=== PATIENT | female | born 1985 | race Caucasian/White ===

== ENCOUNTER 2016-07-22 18:17 | Inpatient (IN) | payer BC ==
[~2016-07-22] VITALS: Ht 152.4 cm; Wt 111.4 kg
[2016-07-22] VITALS (8 sets, daily range): BP systolic 114–126; BP diastolic 59–84
[~2016-07-22 18:17] MED LIST: ZOFRAN ODT4 MG PO
[2016-07-22] MEDS ORDERED: ZYRTEC10 M2 PO (19:08)
[2016-07-22] MEDS ORDERED: PROZAC20 MG PO (19:08)
[2016-07-22] MEDS ORDERED: PRENATAL TABLE1 EAC3 PO (19:08)
[2016-07-22 19:47] LABS: BASOPHIL COUNT 0.1 K/uL (0-0.1); EOSINOPHIL (%) 0.6 % (0-5); EOSINOPHIL COUNT 0.1 K/uL (0-0.3); HEMATOCRIT 33.9 % (36.0-46.0); IMMATURE GRANULOCYTE (%) 1.1 % (0.0-0.7); IMMATURE GRANULOCYTE COUNT 0.1 K/uL; LYMPHOCYTE COUNT 2.4 K/uL (1.0-2.8); MCH 27.6 PG (29.0-34.0); MCHC 32.2 G/DL (30.0-36.0); MCV 85.8 FL (83-99); MEAN PLAT.VOLUME 9.9 uM^3 (9.5-12.4); MONOCYTE (%) 7.9 % (3-12); MONOCYTE COUNT 0.9 K/uL (0-0.8); NEUTROPHIL (%) 69.5 % (45-76); PLATELET COUNT 330 K/uL (156-360); RBC DIS.WIDTH-SD 47.4 % (39-53); RED BLOOD COUNT 3.95 M/uL (3.80-5.20); WHITE BLOOD COUNT 11.5 K/uL (4.1-10.2)
[2016-07-23] VITALS (32 sets, daily range): BP systolic 96–132; BP diastolic 51–80
[2016-07-23] MEDS ORDERED: ENDOCET 5-3251 EACH PO (23:18)
[2016-07-23] MEDS ORDERED: IBUPROFEN800 MG PO (23:18)
[2016-07-24] VITALS (10 sets, daily range): BP systolic 91–129; BP diastolic 50–75
[2016-07-24 06:59] LABS: BASOPHIL COUNT 0.1 K/uL (0-0.1); EOSINOPHIL (%) 0.1 % (0-5); HEMATOCRIT 28.9 % (36.0-46.0); IMMATURE GRANULOCYTE (%) 0.9 % (0.0-0.7); IMMATURE GRANULOCYTE COUNT 0.1 K/uL; INSTRUMENT ABS NEUTROPHIL CT 10.9 K/uL; LYMPHOCYTE COUNT 1.8 K/uL (1.0-2.8); MCH 27.3 PG (29.0-34.0); MCHC 31.5 G/DL (30.0-36.0); MCV 86.8 FL (83-99); MEAN PLAT.VOLUME 10.1 uM^3 (9.5-12.4); MONOCYTE (%) 6.4 % (3-12); MONOCYTE COUNT 0.9 K/uL (0-0.8); NEUTROPHIL (%) 78.9 % (45-76); NEUTROPHIL COUNT 10.9 K/uL (1.8-6.4); PLATELET COUNT 266 K/uL (156-360); RBC DIS.WIDTH-CV 15.2 % (11.8-14.6); RED BLOOD COUNT 3.33 M/uL (3.80-5.20); WHITE BLOOD COUNT 13.8 K/uL (4.1-10.2)
[2016-07-25 03:13] VITALS: BP 99/58
[2016-07-25 07:17] VITALS: BP 119/75
[2016-07-25 11:22] VITALS: BP 126/73
[2016-07-25 15:56] VITALS: BP 122/84
[2016-07-25 19:39] VITALS: BP 129/75
[2016-07-25 23:10] VITALS: BP 126/68
[2016-07-26 07:48] VITALS: BP 126/78
== END 2016-07-26 10:51 | disposition home or self-care (01) | DRG 765 ==
LOC: LDRP-OP 18:17 → 2WEST 18:18 → LDRP-OP 08-12 10:57
PROVIDERS: Obstetrics & Gynecology
PROC: 3E0P7GC Introduction of Other Therapeutic Substance into Female Reproductive, Via Natural or Artificial Opening (ICD-10-PCS; 2016-07-22)
PROC: 3E0S3BZ Introduction of Anesthetic Agent into Epidural Space, Percutaneous Approach (ICD-10-PCS; 2016-07-22)
PROC: 10D00Z1 Extraction of Products of Conception, Low, Open Approach (ICD-10-PCS; principal; 2016-07-23)
DX: O48.0 Post-term pregnancy (principal); Z68.42 Body mass index [BMI] 45.0-49.9, adult; F33.9 Major depressive disorder, recurrent, unspecified; O36.5931 Maternal care for other known or suspected poor fetal growth, third trimester, fetus 1; O00-O9A Pregnancy, childbirth and the puerperium; O99.214 Obesity complicating childbirth; E66.01 Morbid (severe) obesity due to excess calories; Z37.0 Single live birth; Z3A.41 41 weeks gestation of pregnancy; O69.1XX1 Labor and delivery complicated by cord around neck, with compression, fetus 1; O77.0 Labor and delivery complicated by meconium in amniotic fluid; O32.4XX1 Maternal care for high head at term, fetus 1; O61.0 Failed medical induction of labor; O99.344 Other mental disorders complicating childbirth
CPT/HCPCS: 85025; C1755; G0378; J0595; J0690; J1650; J2175; J2274; J2765; J3010; J7120

== ENCOUNTER 2017-07-18 15:42 | Emergency (ER) | payer BC ==
[~2017-07-18] VITALS: Ht 154.9 cm; Wt 117.9 kg
[~2017-07-18 15:42] MED LIST changes: +ENDOCET 5-3251 EACH PO; +IBUPROFEN800 MG PO; +PRENATAL TABLE1 EAC3 PO; +PROZAC20 MG PO; +ZYRTEC10 M2 PO
[2017-07-18 16:23] LABS: HEMATOCRIT 38.1 % (36.0-46.0); MCH 26.8 PG (29.0-34.0); MCHC 31.5 G/DL (30.0-36.0); PLATELET COUNT 372 K/uL (156-360); RBC DIS.WIDTH-CV 15.2 % (11.8-14.6); RBC DIS.WIDTH-SD 47.5 % (39-53); RED BLOOD COUNT 4.48 M/uL (3.80-5.20)
[2017-07-18 16:35] LABS: CHLORIDE 105 MEQ/L (99-109); POTASSIUM 3.9 MEQ/L (3.7-5.4); SODIUM 138 MEQ/L (136-147)
[2017-07-18 16:41] LABS: CREATININE 0.7 MG/DL (0.6-1.3); GFR ESTIMATE (CALCULATED) > 59 mL/min/; GLUCOSE 109 mg/dL (70-99); UREA NITROGEN (BUN) 9 mg/dL (9-23)
[2017-07-18 17:29] LABS: DIRECT BILIRUBIN 0.1 mg/dL (0.0-0.3); TOTAL BILIRUBIN 0.2 MG/DL (0.0-1.0)
[2017-07-18 17:35] LABS: ALKALINE PHOSPHATASE 53 IU/L (3-129); ALT (GPT) 16 IU/L (3-49); AST (GOT) 13 IU/L (2-34); LIPASE 414 U/L (1.0-51.0); TOTAL PROTEIN 7.2 G/DL (6.4-8.3)
[2017-07-18] MEDS ORDERED: LEVOTHYROXINE25 MCG PO (17:42)
[2017-07-18 18:02] LABS: QUANTITATIVE HCG < 4.0 MIU/ML
[2017-07-18 19:34] LABS: APPEARANCE SL.HAZY ((CLEAR)); BILIRUBIN NEGATIVE; BLOOD NEGATIVE; COLOR YELLOW ((YELLOW)); GLUCOSE (STRIP) NEGATIVE; KETONES NEGATIVE; LEUKOCYTES NEGATIVE; NITRITE NEGATIVE; PROTEIN (STRIP) NEGATIVE; SPECIFIC GRAVITY 1.018 (1.000-1.030); UROBILINOGEN 0.2 MG/DL (0.2-1.0)
[2017-07-18 19:43] LABS: BACTERIA RARE /HPF; EPITHELIAL CELLS 2+ /HPF; MUCUS TRACE /LPF; RED BLOOD CELLS 0-5 /HPF (0-5); UCUL ADDED? NO; WHITE BLOOD CELLS 0-5 /HPF (0-5)
[2017-07-18] MEDS ORDERED: ZOFRAN ODT4 MG PO (20:05)
[2017-07-18] MEDS ORDERED: FLEXERIL10 MG PO (20:21)
[2017-07-18] MEDS ORDERED: NAPROSYN500 MG PO (20:21)
[2017-07-18 20:26] VITALS: BP 137/86
== END 2017-07-18 20:27 | disposition home or self-care (01) ==
LOC: EME 15:42
DX: N20.0 Calculus of kidney (principal); M62.838 Other muscle spasm; Z85.820 Personal history of malignant melanoma of skin
CPT/HCPCS: 74176; 80048; 80076; 81003; 83690; 84702; 85027; 99281; 99284

== ENCOUNTER 2017-07-21 10:19 | Emergency (ER) | payer BC ==
[~2017-07-21] VITALS: Ht 154.9 cm; Wt 117.0 kg
[~2017-07-21 10:19] MED LIST changes: +FLEXERIL10 MG PO; +LEVOTHYROXINE25 MCG PO; +NAPROSYN500 MG PO
[2017-07-21 11:02] LABS: HEMOGLOBIN 13.4 G/DL (11.9-15.5); MCH 27.2 PG (29.0-34.0); MCHC 32.7 G/DL (30.0-36.0); MCV 83.2 FL (83-99); PLATELET COUNT 343 K/uL (156-360); RBC DIS.WIDTH-SD 45.8 % (39-53); RED BLOOD COUNT 4.93 M/uL (3.80-5.20); WHITE BLOOD COUNT 20.9 K/uL (4.1-10.2)
[2017-07-21 11:16] LABS: ALBUMIN 4.2 g/dL (3.2-4.8); CHLORIDE 101 mEq/L (99-109); POTASSIUM 4.1 mEq/L (3.7-5.4); SODIUM 136 mEq/L (136-147)
[2017-07-21 11:19] LABS: GLUCOSE 120 mg/dL (70-99); TOTAL PROTEIN 7.9 g/dL (6.4-8.3)
[2017-07-21 11:20] LABS: TOTAL BILIRUBIN 0.8 mg/dL (0.0-1.0)
[2017-07-21 11:22] LABS: ALKALINE PHOSPHATASE 61 IU/L (3-129); CREATININE 0.7 mg/dL (0.6-1.3); GFR ESTIMATE (CALCULATED) > 59 mL/min/
[2017-07-21 11:23] LABS: UREA NITROGEN (BUN) 9 mg/dL (9-23)
[2017-07-21 11:24] LABS: AST (GOT) 14 IU/L (2-34); DIRECT BILIRUBIN 0.3 mg/dL (0.0-0.3)
[2017-07-21 11:25] LABS: ALT (GPT) 21 IU/L (3-49); QUANTITATIVE HCG < 4.0 MIU/ML
[2017-07-21 11:26] LABS: LIPASE 112 U/L (1.0-51.0)
[2017-07-21 13:10] LABS: APPEARANCE CLEAR ((CLEAR)); BILIRUBIN NEGATIVE; BLOOD SMALL; COLOR STRAW ((YELLOW)); GLUCOSE (STRIP) NEGATIVE; KETONES 5; LEUKOCYTES NEGATIVE; NITRITE NEGATIVE; PROTEIN (STRIP) NEGATIVE; SPECIFIC GRAVITY 1.018 (1.000-1.030); UROBILINOGEN 0.2 MG/DL (0.2-1.0)
[2017-07-21 13:16] LABS: BACTERIA NONE SEEN /HPF; EPITHELIAL CELLS 1+ /HPF; MUCUS TRACE /LPF; RED BLOOD CELLS 0-5 /HPF (0-5); UCUL ADDED? NO; WHITE BLOOD CELLS 0-5 /HPF (0-5)
[2017-07-21] MEDS ORDERED: PERCOCET 5/31 TABLET PO (15:29)
[2017-07-21] MEDS ORDERED: ZOFRAN4 MG PO (15:37)
[2017-07-21 15:52] VITALS: BP 119/88
== END 2017-07-21 15:52 | disposition home or self-care (01) ==
LOC: EME 10:19
DX: R10.9 Unspecified abdominal pain (principal); D72.829 Elevated white blood cell count, unspecified; R06.02 Shortness of breath; E03.9 Hypothyroidism, unspecified; Z85.820 Personal history of malignant melanoma of skin
CPT/HCPCS: 71275; 76705; 80048; 80076; 81003; 83690; 84702; 85027; 93005; 99281; 99285; J2405; J3010; J7030

== ENCOUNTER → 2017-08-04 | Outpatient (CLI) | payer BC ==
[~2017-08-04] MED LIST changes: +PERCOCET 5/31 TABLET PO; +ZOFRAN4 MG PO
== END | disposition home or self-care (01) ==
LOC: NUC 10:00
DX: K81.1 Chronic cholecystitis (principal); D72.829 Elevated white blood cell count, unspecified
CPT/HCPCS: 72040; 72070; 72100; 78227; A9537; J2805

== ENCOUNTER 2017-09-16 05:28 | Day surgery (SDC) | payer BC ==
[~2017-09-16] VITALS: Ht 154.9 cm; Wt 115.7 kg
[~2017-09-16 05:28] MED LIST changes: +CAMRESE 0.15-01 EACH PO
[2017-09-16 05:46] VITALS: BP 136/78
[2017-09-16] MEDS ORDERED: NORCO 5/3251 TABLET PO (09:27)
[2017-09-16 09:45] VITALS: BP 121/63
[2017-09-16 10:40] VITALS: BP 121/74
== END 2017-09-16 10:50 | disposition home or self-care (01) ==
LOC: SDC 05:28
PROVIDERS: Surgery
PROC: 0FT44ZZ Resection of Gallbladder, Percutaneous Endoscopic Approach (ICD-10-PCS; principal; 2017-09-16)
PROC: BF141ZZ Fluoroscopy of Gallbladder, Bile Ducts and Pancreatic Ducts using Low Osmolar Contrast (ICD-10-PCS; principal; 2017-09-16)
DX: K80.10 Calculus of gallbladder with chronic cholecystitis without obstruction (principal); Z85.820 Personal history of malignant melanoma of skin; G43.909 Migraine, unspecified, not intractable, without status migrainosus; E03.9 Hypothyroidism, unspecified; E66.01 Morbid (severe) obesity due to excess calories; Z68.42 Body mass index [BMI] 45.0-49.9, adult; F41.1 Generalized anxiety disorder; Z82.49 Family history of ischemic heart disease and other diseases of the circulatory system; Z83.3 Family history of diabetes mellitus; Z88.8 Allergy status to other drugs, medicaments and biological substances
CPT/HCPCS: 74300; 81025; 88304; J1100; J1170; J1885; J2250; J2405; J2710; J3010; J7643; Q0175; S0020; S0074